=== PATIENT | female | born 1990 | race Caucasian/White ===

== ENCOUNTER 2020-07-24 13:09 | Outpatient (CLI) | payer OTHER ==
--- NOTE | 2020-07-24 14:29 | XRay Report ---
ABDOMEN 1 VIEW(S) INDICATION / CLINICAL INFORMATION: KIDNEY STONES. COMPARISON: None available. FINDINGS: TUBES / LINES: None. BOWEL GAS PATTERN: No significant abnormality. FREE AIR / EXTRALUMINAL GAS: None seen. ADDITIONAL FINDINGS: No obvious renal stones are identified in the knee. IMPRESSION: No significant abnormality. Signer Name: Dwayne Ty Jr, MD Signed: 07/24/2020 2:24 PM Workstation Name: [id number]
== END 2020-07-24 13:10 | disposition home or self-care (01) ==
LOC: SPVIMAG 13:09
PROVIDERS: ATTEND Urology
DX: N20.0 Calculus of kidney (principal)
CPT/HCPCS: 74018